=== PATIENT | male | born 1995 | race Caucasian/White ===

== ENCOUNTER 2016-05-18 12:02 | Emergency (ER) | payer MEDICARE, MEDICAID ==
[2016-05-18 12:08] VITALS: TEMP 98.1; BMI 17.2
[2016-05-18] MEDS ORDERED: ACETAMINOPHEN CODEINE PO ONE (12:16)
--- NOTE | 2016-05-18 12:18 | EDPRACDOC ---
ED Seizure HPI - General Information Chief Complaint: Seizure Stated Complaint: SEIZURE Time Seen by Provider: 05/18/16 12:09 Information Source: Patient, Parent Mode Of Arrival: Car Home Medications: Home Medications Lorazepam [Ativan] 1 mg PO TID PRN 03/04/13 Omeprazole [Prilosec] 20 mg PO BID 04/20/15 Carbamazepine [Tegretol] 2 tsp PO BID 12/22/15 Amoxicillin 2 tsp PO .DAILY X 10D 03/19/16 Fluticasone Propionate [Flonase] 1 - 2 spray ZAN DAILY 03/19/16 Ondansetron [Zofran Odt] 4 mg PO Q8H PRN #10 tab.rapdis 05/18/16 Allergies/Adverse Reactions: Allergies Allergy/AdvReac Type Severity Reaction Status Date / Time amoxicillin [Amoxicillin] Allergy Severe See Verified 05/18/16 12:05 Comments hydrocodone [Hydrocodone] Allergy Severe Rash-Genera Verified 05/18/16 12:05 lized ketorolac tromethamine Allergy Severe feels bad Verified 05/18/16 12:05 [From Toradol] phenytoin sodium Allergy Severe Rash-Genera Verified 05/18/16 12:05 [From Dilantin] lized phenytoin sodium extended Allergy Severe Rash-Genera Verified 05/18/16 12:05 [From Dilantin] lized strawberry [[place]] Allergy Severe Hives* Verified 05/18/16 12:05 chloral hydrate Allergy Mild Hives* Verified 05/18/16 12:05 [Chloral Hydrate] diphenhydramine HCl Allergy Unknown Unknown/See Verified 05/18/16 12:05 [From Benadryl] Comments oxycodone Allergy Rash-Genera Verified 05/18/16 12:05 lized [place] AdvReac Unknown PATIENT Verified 05/18/16 12:05 WILL NOT TAKE ANYTHING TORRES FLAVORED - History of Present Illness Onset: [employer] Medications/Treatment [employer] Treated With Medication [employer] YES Medications [employer] (Medication/ ativan 1mg po Dose/Time) HPI: Pt in bed when had seizure this morning. C/o headache, and blurred vision. Pt states blurred vision resolved but still has headache. Denies n/v, neck pain, back pain, cp, sob, abd pain, loss of control bowel or bladder. Pt took ativan and ibuprofen [employer] boat [employer]. Request Tegretol level checked. Seizure Duration: mins Witnessed: YES Postictal: Yes Episodes: Reports: single episode today Compliant with Seizure Medication: Yes Seizure Type: Reports: Shaking Seizure Trigger: Denies: Emotion, Medication, Environmental Stimuli, Unknown Prior to Seizure: Reports: Normal During Seizure: Reports: Deviation of Eyes, Loss of Consciousness Arousable To: Denies: Name, Touch, Shaking, Light Pain, Deep Pain, Other Immediately After Seizure: Reports: Confusion Relevant History of: Reports: None Associated Signs & Symptoms: Reports: Headache - [place] Coma scale Coma Scale Eye Opening: Spontaneous Coma Scale Motor: Obeys Commands Coma Scale Verbal: Oriented Coma Scale Total: 15 - Treatment Prior to ED Arrival Reported Medications/Treatment [employer] Treated With Medication [employer] YES Medications [employer] (Medication/ ativan 1mg po Dose/Time) ED Past Medical History - History Reviewed Yes Nurses notes reviewed and agree except as marked - Patient Medical History Neurological History: Reports: Seizures Psychological History: Denies: Depression Additional Past Medical History: CEREBRAL PALSY Surgical History: Reports: Other (BRAIN SURGERY, DENTAL, LEG) - Social Medical History Smoking Status: Never smoker ETOH: None Substance Abuse: None EDM Review of Systems - Review of Systems Constitutional: No Symptoms Reported. negative: Fever, Chills, Weakness, Fatigue, Loss of Appetite Eyes: Blurred Vision Ears: No Symptoms Reported. negative: Pain, Hearing Loss, Drainage, Ear Pulling Throat: No Symptoms Reported. negative: Pain, Swelling Nose: No Symptoms Reported. negative: Congestion, Bleeding, Discharge, Injection, Swelling, Deformity, Ecchymosis, Tender, Abrasion, Laceration Mouth: No Symptoms Reported. negative: Pain, Drooling Respiratory: No Symptoms Reported. negative: Cough, Brassy Cough, Barky Cough, Shortness of Breath, Wheezing, Hemoptysis Cardiovascular: No Symptoms Reported. negative: Chest Pain, Palpitations, Syncope, Edema, Orthopnea, PND, Skin Mottling, Cyanosis Gastrointestinal: No Symptoms Reported. negative: Pain, Constipation, Nausea, Vomiting, Diarrhea, Melena, Formula Intolerance Genitourinary: No Symptoms Reported. negative: Dysuria, Hematuria, Frequency, Discharge, Bleeding, Testicular Pain, Neurological: Headache, Seizure Musculoskeletal: No Symptoms Reported. negative: Neck, Chestwall, Ribs, Back, Shoulder, Arm, Elbow, Forearm, Wrist, Hand, Pelvis, Hip, Femur, Knee, Leg, Ankle , Foot Integumentary: No Symptoms Reported. negative: Itching, Rash, Bruising, Wound Allergic/Immunologic: No Symptoms Reported. negative: Hives, Itching Hematologic: No Symptoms Reported. negative: Lymphadenopathy, Easy Bruising, Easy Bleeding Psychiatric: No Symptoms Reported. negative: Anxiety, Depression, Hallucinations, Insomnia, Suicidal - Physical Exam Constitutional: Alert Oriented to: Time, Person, Place Last recorded Vital Signs: Last Vital Signs Temp 98.1 F 05/18/16 12:05 Pulse 64 05/18/16 12:05 Resp 16 05/18/16 12:05 BP 144/86 05/18/16 12:05 Pulse Ox 99 05/18/16 12:05 Oxygen Pulse Oxygen Saturation 99 O2 Device Room Air Oxygen Flow Rate Fraction of Inspired Oxygen ( FIO2) - HEENT Head: Normal ( normocephalic) Eye Exam: Normal (PERRL, EOMI, Sclera white) Oropharynx: Normal (Pharynx:Moist without exudate,Gums-no swelling) Tympanic Membrane: Normal ENT EAC: Normal TMJ: Normal Nose: No Symptoms Reported (septum midline) Neck: Normal (FROM, trachea at midline) - Respiratory/Cardiovascular Respiratory: Normal - CTA (BBS clear to auscultation without adventitious sounds ) Cardiovascular: Normal (RRR without murmur, gallop or rub) - GI Auscultation: Normal (NABS) Palpation: Normal (Soft,No rebound or guarding, non distended) Tenderness: Non tender - Musculoskeletal Back: Normal (Non-Tender) Extremities: Normal (Normal tone, Pulses 2+ No cyanosis or edema, FROM) - Integumentary Skin: Normal, Warm, Dry Lymphatics: Normal (no adenopathy) - Neurologic Memory Impaired: Normal Motor Function: Normal (Normal tone, Pulses 2+ No cyanosis or edema, FROM) Mood Description: Normal Perception: Normal - Differential Diagnosis Anticonvulsant Withdrawal, Closed Head Injury, Idiopathic, Seizure - Re-evaluation Re-evaluation 1 Re-evaluation Time: 13:28 (improved) - Results 05/18/16 12:50 05/18/16 13:25 Laboratory Results - last 24 hr 05/18/16 05/18/16 12:50 12:50 Sodium 141 Potassium 4.7 Chloride 99 Carbon Dioxide 29 Anion Gap 18 H BUN 8 L Creatinine 0.80 Estimated GFR (MDRD) > 60 Glucose 94 Calculated Osmolality 269 L Calcium 9.7 Total Bilirubin 0.8 AST 19 ALT 26 Alkaline Phosphatase 120 Total Protein 8.3 H Albumin 4.7 Carbamazepine 11.4 - Diagnostic Imaging Head Image interpreted by: Radiologist IMPRESSION: Chronic ventricular enlargement and ventriculostomy catheter. No acute abnormality is seen. Decision Time to Discharge: 13:26 - Departure Disposition: Home Condition: Good Final Diagnosis: Seizure Headache Qualifiers: Headache type: post-traumatic Headache chronicity pattern: acute headache Intractability: not intractable Qualified Code(s): G44.319 - Acute post- traumatic headache, not intractable Instructions: Headache, Headache,FAQ's, Seizures Education/Counseling Given To: Patient Education/Counseling Given Regarding: Diagnosis, Treatment, Prognosis, Follow Up Referrals: Herbert Braden MD [Primary Care Provider] - One Week Prescriptions: New Ondansetron [Zofran Odt] 4 mg PO Q8H PRN #10 tab.rapdis PRN Reason: Nausea/Vomiting No Action Lorazepam [Ativan] 1 mg PO TID PRN PRN Reason: Anxiety Omeprazole [Prilosec] 20 mg PO BID Carbamazepine [Tegretol] 2 tsp PO BID Fluticasone Propionate [Flonase] 1 - 2 spray ZAN DAILY Amoxicillin 2 tsp PO .DAILY X 10D Additional Instructions: Return for worse or different symptoms.
--- NOTE | 2016-05-18 12:42 | DIRPT ---
CLINICAL DATA: Seizure and head injury EXAM: CT HEAD WITHOUT CONTRAST TECHNIQUE: Contiguous axial images were obtained from the base of the skull through the vertex without intravenous contrast. COMPARISON: 12/13/2015 FINDINGS: Bony calvarium is intact. The left lateral ventricle remains enlarged. A ventriculostomy catheter is again seen. No findings to suggest acute hemorrhage or acute infarction are seen. No other focal abnormality is noted. IMPRESSION: Chronic ventricular enlargement and ventriculostomy catheter. No acute abnormality is seen. Electronically Signed By: Magdiel Zavala M.D. On: 05/18/2016 12:39
[2016-05-18 13:14] LABS: BLOOD UREA NITROGEN 8 MG/DL (9-20); CALCIUM 9.7 MG/DL (8.4-10.2); CALCULATED OSMOLALITY 269 MOs/Kg (270-290); CHLORIDE 99 mEq/L (98-107); GLUCOSE 94 mg/dL (70-99); SODIUM LEVEL 141 mEq/L (137-146); TOTAL PROTEIN 8.3 G/DL (6.3-8.2)
[2016-05-18 13:36] VITALS: BP 126/78; PULSE 67
== END 2016-05-18 13:35 | disposition home or self-care (01) ==
LOC: ED 12:02
DX: R56.9 Unspecified convulsions (principal); G44.319 Acute post-traumatic headache, not intractable
CPT/HCPCS: 36415; 70450; 80053; 80156; 99282; J3490